=== PATIENT | female | born 1965 ===

== ENCOUNTER 2016-10-17 10:17 | Day surgery (SDC) | payer SELFPAY ==
[2014-04-11 10:30] VITALS: BMI 35.7
[2016-10-17] MEDS ORDERED: Lactated Ringer's 500 ML IV ONE (10:38)
[2016-10-17] MEDS ORDERED: Midazolam 2 MG/2 ML VIAL ONE (11:10)
[2016-10-17] MEDS ORDERED: Propofol 10 mg/ml Inj (20 ML) ONE (11:11)
[2016-10-17] MEDS ORDERED: ePHEDrine 50 mg/ml Inj ONE (11:44)
[2016-10-17 12:07] VITALS: TEMP 97.5
[2016-10-17 12:36] VITALS: BP 112/56; PULSE 67; RESP 16; O2SAT 99
== END 2016-10-17 12:39 | disposition home or self-care (01) ==
LOC: H.ENDO 10:17
PROVIDERS: ATTEND Internal Medicine Gastroenterology
DX: Z12.11 Encounter for screening for malignant neoplasm of colon (principal); K64.8 Other hemorrhoids; K30 Functional dyspepsia; K31.9 Disease of stomach and duodenum, unspecified; E66.01 Morbid (severe) obesity due to excess calories; Z85.42 Personal history of malignant neoplasm of other parts of uterus; R06.83 Snoring

== ENCOUNTER 2017-05-12 13:02 | Emergency (ER) | payer SELFPAY ==
[2017-05-12 13:04] VITALS: BMI 35.7
[2017-05-12 13:13] VITALS: PULSE 82; RESP 18; O2SAT 99
[2017-05-12 14:25] VITALS: BP 110/68; TEMP 98
--- NOTE | 2017-05-12 14:32 | ED PDOC ---
HPI: General Adult Time Seen by Provider: 05/12/17 13:34 Chief Complaint (Nursing): GI Problem History Per: Patient Additional Complaint(s): Pt. states for the past 3 days she's had pain to the L buttock. Pt. was treated with anusol by her PMD, Dr. Rahman, which has not provided any relief. Denies fever, recent illness, trauma. Reports pain is a numbing sensation. Past Medical History Reviewed: Historical Data, Nursing Documentation, Vital Signs Vital Signs: Last Vital Signs Temp 98 F 05/12/17 14:24 Pulse 82 05/12/17 14:24 Resp 18 05/12/17 14:24 BP 110/68 05/12/17 14:24 Pulse Ox 99 05/12/17 14:24 - Medical History PMH: Anemia (ECTOPIC ), Gastritis, HTN (Hx 3 years ago) Denies: Chronic Kidney Disease Other PMH: bladder CA - Surgical History Surgical History: No Surg Hx - Family History Family History: States: No Known Family Hx - Home Medications Home Medications: Ambulatory Orders Medication Instructions Recorded Acyclovir 5% [Zovirax 5% Oint] 1 applic EXT Q3H #1 tube 05/12/17 Acyclovir [Zovirax] 800 mg PO 5XD #35 tab 05/12/17 - Allergies Allergies/Adverse Reactions: Allergies Allergy/AdvReac Type Severity Reaction Status Date / Time No Known Allergies Allergy Verified 04/11/14 10:30 Review of Systems ROS Statement: Except As Marked, All Systems Reviewed And Found Negative Skin: Positive for: Lesions Physical Exam - Physical Exam Appears: Positive for: Well, Non-toxic, No Acute Distress Skin: Positive for: Normal Color, Warm, Rash (3 vesicles on erythematous base on L buttock) Rectal: Positive for: Other (Janelle RN present as senior manager mmcoe). Negative for: Hemorrhoids, Mass Neurologic/Psych: Positive for: Alert, Oriented - ECG O2 Sat by Pulse Oximetry: 99 Disposition - Clinical Impression Clinical Impression: Shingles - Patient ED Disposition Is Patient to be Admitted: No - Disposition Referrals: [facility] [Outside] Disposition: Routine/Home Disposition Time: 14:10 Condition: STABLE Prescriptions: Acyclovir [Zovirax] 800 mg PO 5XD #35 tab Acyclovir 5% [Zovirax 5% Oint] 1 applic EXT Q3H #1 tube Instructions: Shingles (ED) Forms: [employer] Connect (American)
== END 2017-05-12 14:35 | disposition home or self-care (01) ==
LOC: H.ER 13:02
DX: B02.9 Zoster without complications (principal); I10 Essential (primary) hypertension; Z85.51 Personal history of malignant neoplasm of bladder

== ENCOUNTER 2018-11-07 19:05 | Emergency (ER) | payer SELFPAY ==
[2018-11-07 19:05] VITALS: BMI 35.7
[2018-11-07 19:19] VITALS: BP 149/82; PULSE 72; RESP 18; TEMP 98.7; O2SAT 100
--- NOTE | 2018-11-07 20:00 | ED PDOC ---
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 Patient denies taking medications for pain at home, having fevers, bleeding, or discharge. PMD: Raphael Rahman MD Past Medical History Reviewed: Historical Data, Nursing Documentation, Vital Signs Vital Signs: Last Vital Signs Temp 98.7 F 11/07/18 19:16 Pulse 72 11/07/18 19:16 Resp 18 11/07/18 19:16 BP 149/82 11/07/18 19:16 Pulse Ox 100 11/07/18 19:16 PAMELLA Report Viewed: Yes Primary Care Provider: Raphael Rahman - Medical History PMH: Anemia (ECTOPIC ), Gastritis, HTN (Hx 3 years ago) Denies: Chronic Kidney Disease - Surgical History Surgical History: No Surg Hx - Family History Family History: States: No Known Family Hx - Social History Current smoker - smoking cessation education provided: No Alcohol: None Drugs: Denies - Home Medications Home Medications: Ambulatory Orders Medication Instructions Recorded Acyclovir 5% [Zovirax 5% Oint] 1 applic EXT Q3H #1 tube 05/12/17 Acyclovir [Zovirax] 800 mg PO 5XD #35 tab 05/12/17 Docusate [Colace] 100 mg PO BID #20 cap 11/07/18 Sulfamethoxazole/Trimethoprim 1 tab PO BID #20 tab 11/07/18 [Bactrim DS 800 mg-160 mg] oxyCODONE/Acetaminophen [Percocet 1 tab PO Q6H PRN #15 tab 11/07/18 5/325 mg Tab] - Allergies Allergies/Adverse Reactions: Allergies Allergy/AdvReac Type Severity Reaction Status Date / Time No Known Allergies Allergy Verified 04/11/14 10:30 Review of Systems ROS Statement: Except As Marked, All Systems Reviewed And Found Negative Constitutional: Negative for: Fever Gastrointestinal: Positive for: Rectal Pain. 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 skin tag at 7 o'clock. At 1 o'clock: 0.5 cm area of induration with tenderness. (-) fluctuance, (-) bleeding, (-) discharge, (-) vesicles.) Neurological/Psych: Positive for: Awake, Alert, Oriented (3x) - ECG O2 Sat by Pulse Oximetry: 100 (RA) Pulse Ox Interpretation: Normal Medical Decision Making Medical Decision Makin:26 Initial impression: 53 year old female with a perirectal early abscess/cellulitis. Scribe Attestation: Documented by Jayla Pedro, acting as a scribe for Deborah Noriega MD. Provider Scribe Attestation: All medical record entries made by the Scribe were at my direction and personally dictated by me. I have reviewed the chart and agree that the record accurately reflects my personal performance of the history, physical exam, medical decision making, and the department course for this patient. I have also personally directed, reviewed, and agree with the discharge instructions and disposition. Disposition - Clinical Impression Clinical Impression: Perirectal cellulitis - Disposition Referrals: Raphael Rahman MD [Family Provider] - Disposition: Routine/Home Disposition Time: 20:05 Condition: STABLE Prescriptions: Docusate [Colace] 100 mg PO BID #20 cap oxyCODONE/Acetaminophen [Percocet 5/325 mg Tab] 1 tab PO Q6H PRN #15 tab PRN Reason: Pain, Severe (8-10) Sulfamethoxazole/Trimethoprim [Bactrim DS 800 mg-160 mg] 1 tab PO BID #20 tab Instructions: Cellulitis (Skin Infection), Adult (DC), Opioids for Short-Term Treatment of Pain Forms: [employer] Connect (Scottish) Print Language: [place]OT[place]
[2018-11-07] MEDS ORDERED: Tmp-Smz 800 mg-160 mg DS Tab PO STA (20:04)
[2018-11-07] MEDS ORDERED: Oxycodone/Acetaminophen 5/325 mg Tab PO STA (20:04)
[2018-11-07] MEDS ORDERED: Oxycodone/Acetaminophen 5/325 mg Tab ONE (20:17)
[2018-11-07] MEDS ORDERED: Tmp-Smz 800 mg-160 mg DS Tab ONE (20:17)
== END 2018-11-07 20:41 | disposition home or self-care (01) ==
LOC: H.ER 19:05
DX: L03.315 Cellulitis of perineum (principal)